=== PATIENT | female | born 1985 | race Caucasian/White ===

== ENCOUNTER 2018-02-03 21:16 | Emergency (ER) | payer BC ==
[2018-02-03] MEDS ORDERED: Aspirin 81 mg CHEW TAB* 81 MG TAB.CHEW PO ONE (22:44)
--- NOTE | 2018-02-03 22:47 | ED ---
HPI Chest Pain - HPI Summary HPI Summary: Pt is a 32 y/o female who presents to the ED c/o CP. She states she was yelling at her son when she suddenly had intense left-sided CP. Pt also had difficulty breathing, and states that deep breaths made the pain worse. The entire episode lasted 15 minutes, and is now resolved. She denies any diaphoresis or dizziness. Pt has never had a cardiac work up before. 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 Negative: Dizziness, Diaphoresis - Allergy/Home Medications Allergies/Adverse Reactions: Allergies Allergy/AdvReac Type Severity Reaction Status Date / Time No Known Allergies Allergy Verified 02/03/18 21:20 PMH/Surg Hx/FS Hx/Imm Hx Endocrine/Hematology History: Reports: Hx Thyroid Disease Musculoskeletal History: Reports: Hx Rheumatoid Arthritis Infectious Disease History: No Infectious Disease History: Denies: Traveled Outside the [place] in Last 30 Days - Family History Known Family History: Positive: Blood Disorder - Anemia, Other - Alcon's - Social History Alcohol Use: None Hx Substance Use: No Substance Use Type: Reports: None Hx Tobacco Use: No Smoking Status (MU): Never Smoked Tobacco Review of Systems Negative: Skin Diaphoresis Positive: Chest Pain Positive: Shortness Of Breath Neurological: Other - NEGATIVE: dizziness All Other Systems Reviewed And Are Negative: Yes Physical Exam - Summary Physical Exam Summary: VITAL SIGNS: Reviewed. GENERAL: Patient is a well-developed and nourished FEMALE who is lying comfortable in the stretcher. Patient is not in any acute respiratory distress. HEAD AND FACE: No signs of trauma. No ecchymosis, hematomas or skull depressions. No sinus tenderness. EYES: PERRLA, EOMI x 2, No injected conjunctiva, no nystagmus. EARS: Hearing grossly intact. Ear canals and tympanic membranes are within normal limits. MOUTH: Oropharynx within normal limits. NECK: Supple, trachea is midline, no adenopathy, no JVD, no carotid bruit, no c- spine tenderness, neck with full ROM. CHEST: Symmetric, no tenderness at palpation LUNGS: Clear to auscultation bilaterally. No wheezing or crackles. CVS: Regular rate and rhythm, S1 and S2 present, no murmurs or gallops appreciated. ABDOMEN: Soft, non-tender. No signs of distention. No rebound no guarding, and no masses palpated. Bowel sounds are normal. EXTREMITIES: FROM in all major joints, no edema, no cyanosis or clubbing. NEURO: Alert and oriented x 3. No acute neurological deficits. Speech is normal and follows commands. SKIN: Dry and warm Triage Information Reviewed: Yes Vital Signs On Initial Exam: Initial Vitals Temp Pulse Resp BP Pulse Ox 97.6 F 78 20 158/87 100 02/03/18 21:17 02/03/18 21:17 02/03/18 21:17 02/03/18 21:17 02/03/18 21:17 Vital Signs Reviewed: Yes Diagnostics - Vital Signs Vital Signs Temp Pulse Resp BP Pulse Ox 02/03/18 21:17 97.6 F 78 20 158/87 100 - Laboratory Result Diagrams: 02/03/18 23:05 02/03/18 23:05 Lab Statement: Any lab studies that have been ordered have been reviewed, and results considered in the medical decision making process. - Radiology CXR Xray Interpretation: No Acute Changes - No acute process. Pending official radiolgoy report. Radiology Interpretation Completed By: ED Physician - EKG 21:26 Cardiac Rate: NL - 73 bpm EKG Rhythm: Sinus Rhythm EKG Interpretation: Normal axis. Normal interval. No ischemic changes. Re-Evaluation - Re-Evaluation First Eval Re-Evaluation Time: 00:32 Change: Improved Comment: Discussed results. Pt feeling better. Chest Pain Course/Dx - Course Course Of Treatment: Pt is a 32 y/o female who presents to the ED c/o CP. She states she was yelling at her son when she suddenly had intense left-sided CP. Pt also had difficulty breathing, and states that deep breaths made the pain worse. The entire episode lasted 15 minutes, and is now resolved. She denies any diaphoresis or dizziness. Pt has never had a cardiac work up before. A physical exam was normal. A CXR was negative. An EKG revealed normal rate of 73 bpm. Heart score is 0. Final dx is chest pain. She is discharged and is to F/U with cardiology for a stress test. - Diagnoses Provider Diagnoses: Chest pain Discharge - Sign-Out/Discharge Documenting (check all that apply): Patient Departure - Discharge - Discharge Plan Condition: Stable Disposition: HOME Patient Education Materials: Chest Pain (ED) Referrals: Jeremy Tenorio JR, PA [Primary Care Provider] - Kev Downing MD [Medical Doctor] - (2-3 days) Additional Instructions: RETURN TO THE EMERGENCY DEPARTMENT FOR CHANGING OR WORSENING SYMPTOMS. FOLLOW UP WITH PCP IN 1-2 DAYS. Follow up with cardiology for a stress test. - Attestation Statements Document Initiated by Scribe: Yes Documenting Scribe: Dana Hobbs Provider For Whom Scribe is Documenting (Include Credential): Fauzia Devries MD Scribe Attestation: Dana Fischer, scribed for Fauzia Devries MD on 02/04/18 at 0219.
[2018-02-03 23:40] LABS: EGFR Non-African American 82.1 (>60)
[2018-02-04 00:22] LABS: ABS Basophils 0.1 10^3/ul (0-0.2); ABS Eosinophils 0.1 10^3/ul (0-0.6); ABS Lymphocytes 2.5 10^3/ul (1.0-4.8); ABS Monocytes 0.7 10^3/ul (0-0.8); ABS Nucleated RBC 0 10^3/ul; Eosinophil % 1.1 % (0-6); Hematocrit 37 % (35-47); Hemoglobin 12.3 g/dl (12.0-16.0); Lymphocyte % 30.2 % (25-47); Mean Corpuscular HGB Conc 33 g/dl (31-36); Mean Corpuscular Hemoglobin 29 pg (27-31); Mean Corpuscular Volume 89 fL (80-97); Mean Platelet Volume 8.4 um3 (7.4-10.4); Nucleated Red Blood Cells % 0.1; Platelet Count 325 10^3/ul (150-450); Red Blood Count 4.17 10^6/ul (4.00-5.40); Red Cell Distribution Width 14 % (10.5-15); White Blood Count 8.3 10^3/ul (3.5-10.8)
[2018-02-04 02:34] VITALS: BP 124/70
--- NOTE | 2018-02-04 13:40 | RAD ---
Indication: Chest pain. Single frontal view of the chest performed at 2250 hours was reviewed. No prior study is available for comparison. No mediastinal shift is noted. Heart is of normal size and configuration. Lung mejía appear clear. IMPRESSION: NO ACTIVE CARDIOPULMONARY DISEASE IS NOTED.
== END 2018-02-04 02:34 | disposition home or self-care (01) ==
LOC: ED 21:16
DX: R07.9 Chest pain, unspecified (principal); R06.02 Shortness of breath
CPT/HCPCS: 36415; 71045; 80053; 82550; 82553; 83735; 84484; 85025; 85379; 85610; 85730; 93005; 96374; 99283; A9270-GY